=== PATIENT | female | born 1980 | race Two or more races ===

== ENCOUNTER → 2019-02-06 | Outpatient (CLI) | payer OTHER | END | disposition home or self-care (01) | LOC: LAB 14:25 | PROVIDERS: ATTEND Preventive Medicine Preventive Medicine/Occupational Environmental Medicine | DX: Z02.1 Encounter for pre-employment examination (principal) | CPT/HCPCS: 86735; 86762; 86765 ==

== ENCOUNTER → 2019-10-29 | Outpatient (CLI) | payer BC ==
[2019-10-29 08:50] LABS: Basophils # (auto) 0 10 ^3/uL (0-0.2); Basophils % (auto) 0.5 % (0.0-2.0); Eosinophils # (auto) 0 10 ^3/uL (0-0.8); Eosinophils % (auto) 0.4 % (0.0-7.0); Hematocrit 42.8 % (36.0-46.0); Hemoglobin 14.4 g/dL (12.2-16.2); Lymphocytes # (auto) 1.3 10 ^3/uL (0.4-5.4); Lymphocytes % (auto) 23.5 % (10.0-50.0); Mean Corpuscular Hemoglobin 29.3 pg (28.0-32.0); Mean Corpuscular Hgb Conc. 33.6 g/dL (32.0-36.0); Mean Corpuscular Volume 87.2 fL (80.0-100.0); Monocytes # (auto) 0.4 10 ^3/uL (0-1.3); Monocytes % (auto) 7.8 % (0.0-12.0); Neutrophils # (auto) 3.7 10 ^3/uL (1.6-8.6); Neutrophils % (auto) 67.8 % (37.0-80.0); Nucleated Red Blood Cells % 0.3 %; Platelet Count (auto) 231 10^3/uL (140-450); Red Blood Cells 4.91 10^6/uL (4.0-5.20); White Blood Cell 5.5 10^3/uL (4.4-10.8)
[2019-10-29 09:22] LABS: Albumin 3.7 g/dL (3.4-5.0); Calcium 8.5 mg/dL (8.5-10.1)
[2019-10-29 09:28] LABS: BUN/Creatinine Ratio 22.4; Bilirubin, Total 0.5 mg/dL (0.2-1.0); Total Protein 7.5 g/dL (6.4-8.2)
[2019-10-29 09:32] LABS: Free T4 (Free Thyroxine) 1.02 ng/dL (0.89-1.76)
[2019-10-29 09:33] LABS: T3 Total 0.85 ng/mL (0.60-1.81)
== END | disposition home or self-care (01) ==
LOC: LAB 08:21
PROVIDERS: ATTEND Physician Assistant
DX: Z00.00 Encounter for general adult medical examination without abnormal findings (principal); E03.9 Hypothyroidism, unspecified; E04.1 Nontoxic single thyroid nodule; Z28.9 Immunization not carried out for unspecified reason
CPT/HCPCS: 36415; 80053; 80061; 84439; 84443; 84480; 85025

== ENCOUNTER → 2019-12-22 | Outpatient (CLI) | payer OTHER | END | disposition home or self-care (01) | LOC: LAB 15:42 | PROVIDERS: ATTEND Nurse Practitioner Family | DX: Z20.828 Contact with and (suspected) exposure to other viral communicable diseases (principal) | CPT/HCPCS: 87635 ==

== ENCOUNTER → 2020-01-29 | Outpatient (CLI) | payer OTHER | END | disposition home or self-care (01) | LOC: LAB 10:36 | PROVIDERS: ATTEND Nurse Practitioner Family | DX: U07.1 COVID-19 (principal) | CPT/HCPCS: C9803; U0003 ==

== ENCOUNTER 2020-07-16 11:14 | Emergency (ER) | payer BC, OTHER ==
[~2020-07-16] VITALS: Ht 160 cm; Wt 83.0 kg
[2020-07-16 11:44] VITALS: BP 124/80
[2020-07-16] MEDS ORDERED: LORazepam 2MG/ML-1ML VIAL IM ONE (12:30)
== END 2020-07-16 13:41 | disposition home or self-care (01) ==
LOC: ER 11:14
DX: F41.1 Generalized anxiety disorder (principal)
CPT/HCPCS: 96372; 99283; J2060

== ENCOUNTER → 2020-11-03 | Outpatient (CLI) | payer BC ==
[2020-11-03 07:52] LABS: Basophils # (auto) 0 10 ^3/uL (0-0.2); Basophils % (auto) 0.6 % (0.0-2.0); Eosinophils # (auto) 0 10 ^3/uL (0-0.8); Eosinophils % (auto) 0.3 % (0.0-7.0); Hematocrit 38.8 % (36.0-46.0); Hemoglobin 13.2 g/dL (12.2-16.2); Lymphocytes # (auto) 1.6 10 ^3/uL (0.4-5.4); Lymphocytes % (auto) 23.9 % (10.0-50.0); Mean Corpuscular Hemoglobin 29.4 pg (28.0-32.0); Mean Corpuscular Hgb Conc. 33.9 g/dL (32.0-36.0); Mean Corpuscular Volume 86.6 fL (80.0-100.0); Monocytes # (auto) 0.5 10 ^3/uL (0-1.3); Monocytes % (auto) 7.9 % (0.0-12.0); Neutrophils # (auto) 4.4 10 ^3/uL (1.6-8.6); Neutrophils % (auto) 67.3 % (37.0-80.0); Nucleated Red Blood Cells % 0.1 %; Platelet Count (auto) 259 10^3/uL (140-450); Red Blood Cells 4.48 10^6/uL (4.0-5.20); Red Cell Distribution Width 14.1 % (11.8-14.3); White Blood Cell 6.6 10^3/uL (4.4-10.8)
[2020-11-03 08:47] LABS: Albumin 3.8 g/dL (3.4-5.0); BUN/Creatinine Ratio 17.2; Calcium 8.8 mg/dL (8.5-10.1); Potassium 3.5 mmol/L (3.5-5.1)
[2020-11-03 08:55] LABS: Bilirubin, Total 0.6 mg/dL (0.2-1.0); Total Protein 7.4 g/dL (6.4-8.2)
== END | disposition home or self-care (01) ==
LOC: LAB 07:40
PROVIDERS: ATTEND Nurse Practitioner Family
DX: R73.9 Hyperglycemia, unspecified (principal); E78.5 Hyperlipidemia, unspecified; E03.9 Hypothyroidism, unspecified
CPT/HCPCS: 36415; 80053; 80061; 83036; 84443; 85025

== ENCOUNTER → 2020-12-08 | Outpatient (CLI) | payer BC | END | disposition home or self-care (01) | LOC: LAB 10:59 | PROVIDERS: ATTEND Nurse Practitioner Family | DX: E03.9 Hypothyroidism, unspecified (principal) | CPT/HCPCS: 36415; 84443 ==

== ENCOUNTER → 2021-01-10 | Outpatient (CLI) | payer BC | END | disposition home or self-care (01) | LOC: LAB 07:33 | PROVIDERS: ATTEND Physician Assistant | DX: Z20.822 Contact with and (suspected) exposure to COVID-19 (principal) | CPT/HCPCS: C9803; U0003 ==

== ENCOUNTER → 2021-10-12 | Outpatient (CLI) | payer BC, OTHER ==
[2021-10-12 12:18] LABS: Basophils # (auto) 0.1 10 ^3/uL (0-0.2); Basophils % (auto) 0.8 % (0.0-2.0); Eosinophils # (auto) 0 10 ^3/uL (0-0.8); Eosinophils % (auto) 0.7 % (0.0-7.0); Hematocrit 38.9 % (36.0-46.0); Hemoglobin 13.2 g/dL (12.2-16.2); Lymphocytes # (auto) 2.1 10 ^3/uL (0.4-5.4); Lymphocytes % (auto) 32.1 % (10.0-50.0); Mean Corpuscular Volume 85.3 fL (80.0-100.0); Monocytes # (auto) 0.5 10 ^3/uL (0-1.3); Monocytes % (auto) 8.3 % (0.0-12.0); Neutrophils # (auto) 3.7 10 ^3/uL (1.6-8.6); Neutrophils % (auto) 58.1 % (37.0-80.0); Nucleated Red Blood Cells % 0.1 %; Red Blood Cells 4.56 10^6/uL (4.0-5.20); Red Cell Distribution Width 13.8 % (11.8-14.3); White Blood Cell 6.4 10^3/uL (4.4-10.8)
[2021-10-12 12:22] LABS: Urine Bacteria NONE SEEN /hpf (None Seen); Urine Blood Negative /uL (Negative); Urine Specific Gravity 1.007 (1.001-1.035); Urine Sperm PRESENT /hpf (None Seen); Urine WBC 1 /hpf (0 - 5)
[2021-10-12 13:40] LABS: Albumin 3.7 g/dL (3.4-5.0); Calcium 8.6 mg/dL (8.5-10.1); Potassium 3.9 mmol/L (3.5-5.1); Uric Acid 4.2 mg/dL (2.6-6.0)
[2021-10-12 13:43] LABS: BUN/Creatinine Ratio 14.1; Bilirubin, Total 0.4 mg/dL (0.2-1.0); Total Protein 7.6 g/dL (6.4-8.2)
== END | disposition home or self-care (01) ==
LOC: LAB 11:56
PROVIDERS: ATTEND Nurse Practitioner Family
DX: Z00.00 Encounter for general adult medical examination without abnormal findings (principal); R30.0 Dysuria; E03.9 Hypothyroidism, unspecified
CPT/HCPCS: 36415; 80053; 81001; 84439; 84443; 84550; 85025

== ENCOUNTER → 2022-06-20 | Outpatient (CLI) | payer MEDICAID ==
[2022-06-20 07:50] LABS: Basophils # (auto) 0.1 10 ^3/uL (0-0.2); Basophils % (auto) 1.4 % (0.0-2.0); Eosinophils # (auto) 0 10 ^3/uL (0-0.8); Hematocrit 42.2 % (36.0-46.0); Hemoglobin 14.5 g/dL (12.2-16.2); Lymphocytes # (auto) 1.5 10 ^3/uL (0.4-5.4); Lymphocytes % (auto) 33.3 % (10.0-50.0); Mean Corpuscular Hemoglobin 30.9 pg (28.0-32.0); Mean Corpuscular Hgb Conc. 34.4 g/dL (32.0-36.0); Mean Corpuscular Volume 89.9 fL (80.0-100.0); Monocytes # (auto) 0.4 10 ^3/uL (0-1.3); Monocytes % (auto) 7.9 % (0.0-12.0); Neutrophils # (auto) 2.5 10 ^3/uL (1.6-8.6); Neutrophils % (auto) 56.4 % (37.0-80.0); Nucleated Red Blood Cells % 0.1 %; Red Cell Distribution Width 13.9 % (11.8-14.3); White Blood Cell 4.5 10^3/uL (4.4-10.8)
[2022-06-20 08:16] LABS: Albumin 4.1 g/dL (3.4-5.0); Calcium 8.8 mg/dL (8.5-10.1); Potassium 3.8 mmol/L (3.5-5.1)
[2022-06-20 08:22] LABS: BUN/Creatinine Ratio 11.1; Bilirubin, Total 0.6 mg/dL (0.2-1.0); Total Protein 7.6 g/dL (6.4-8.2)
== END | disposition home or self-care (01) ==
LOC: LAB 07:33
PROVIDERS: ATTEND Nurse Practitioner Family
DX: E03.9 Hypothyroidism, unspecified (principal); E78.00 Pure hypercholesterolemia, unspecified
CPT/HCPCS: 36415; 80053; 80061; 84439; 84443; 85025

== ENCOUNTER 2022-12-07 17:08 | Emergency (ER) | payer MEDICAID ==
[~2022-12-07] VITALS: Ht 162.6 cm; Wt 79.3 kg
[2022-12-07 17:35] LABS: Urine Bacteria FEW /hpf (None Seen); Urine Blood Negative /uL (Negative); Urine Mucus FEW (None Seen); Urine Specific Gravity 1.015 (1.001-1.035); Urine WBC 4 /hpf (0 - 5)
[2022-12-07] MEDS ORDERED: PROCHLORPERAZINE EDISYLATE 5 MG/ML 2ML VIAL IM ONE (17:45)
[2022-12-07] MEDS ORDERED: MORPHINE SULFATE INJ 2 MG/ml SYRG IM ONE (17:45)
[2022-12-07 17:46] LABS: Basophils # (auto) 0.1 10 ^3/uL (0-0.2); Basophils % (auto) 0.8 % (0.0-2.0); Eosinophils # (auto) 0 10 ^3/uL (0-0.8); Eosinophils % (auto) 0.5 % (0.0-7.0); Hematocrit 42.3 % (36.0-46.0); Hemoglobin 14.3 g/dL (12.2-16.2); Lymphocytes # (auto) 2.7 10 ^3/uL (0.4-5.4); Lymphocytes % (auto) 36.5 % (10.0-50.0); Mean Corpuscular Hgb Conc. 33.9 g/dL (32.0-36.0); Mean Corpuscular Volume 91.4 fL (80.0-100.0); Monocytes # (auto) 0.5 10 ^3/uL (0-1.3); Monocytes % (auto) 7.1 % (0.0-12.0); Neutrophils # (auto) 4.1 10 ^3/uL (1.6-8.6); Neutrophils % (auto) 55.1 % (37.0-80.0); Nucleated Red Blood Cells % 0.1 %; Red Blood Cells 4.63 10^6/uL (4.0-5.20); White Blood Cell 7.5 10^3/uL (4.4-10.8)
[2022-12-07 18:05] LABS: Albumin 3.9 g/dL (3.4-5.0); BUN/Creatinine Ratio 10.3 (10.0-20.0); Calcium 8.8 mg/dL (8.5-10.1); Potassium 3.4 mmol/L (3.5-5.1)
[2022-12-07 18:08] LABS: Bilirubin, Total 0.5 mg/dL (0.2-1.0)
[2022-12-07 18:58] LABS: INR 0.98 (0.9-1.15); Partial Thromboplastin Time 27.6 SEC (24.5-34.5)
[2022-12-07] MEDS ORDERED: cefTRIAXone SOD 1,000 MG VL IM ONE (19:45)
[2022-12-07 20:54] VITALS: BP 112/69
[2022-12-07] MEDS ORDERED: CEPH500T PO (21:24)
== END 2022-12-07 21:03 | disposition home or self-care (01) ==
LOC: ER 17:08
DX: N39.0 Urinary tract infection, site not specified (principal)
CPT/HCPCS: 36415; 74176; 76705; 80053; 81001; 83690; 84484; 85025; 85610; 85730; 87086; 93005; 96372; 99285; J0696; J0780; J2270

== ENCOUNTER → 2023-02-28 | Outpatient (CLI) | payer MEDICAID ==
[~2023-02-28] MED LIST: CEPH500T PO
== END | disposition home or self-care (01) ==
LOC: LAB 07:29
PROVIDERS: ATTEND Nurse Practitioner Family
DX: E03.9 Hypothyroidism, unspecified (principal)
CPT/HCPCS: 36415; 84439; 84443

== ENCOUNTER → 2024-03-12 | Outpatient (CLI) | payer MEDICAID ==
[2024-03-12 08:48] LABS: Basophils # (auto) 0 10 ^3/uL (0-0.2); Basophils % (auto) 0.8 % (0.0-2.0); Eosinophils # (auto) 0 10 ^3/uL (0-0.8); Eosinophils % (auto) 0.7 % (0.0-7.0); Hematocrit 41.2 % (36.0-46.0); Hemoglobin 14.2 g/dL (12.2-16.2); Lymphocytes # (auto) 1.3 10 ^3/uL (0.4-5.4); Lymphocytes % (auto) 28.5 % (10.0-50.0); Mean Corpuscular Hemoglobin 32.4 pg (28.0-32.0); Mean Corpuscular Hgb Conc. 34.3 g/dL (32.0-36.0); Mean Corpuscular Volume 94.3 fL (80.0-100.0); Monocytes # (auto) 0.4 10 ^3/uL (0-1.3); Monocytes % (auto) 9.5 % (0.0-12.0); Neutrophils # (auto) 2.9 10 ^3/uL (1.6-8.6); Neutrophils % (auto) 60.5 % (37.0-80.0); Platelet Count (auto) 207 10^3/uL (140-450); Red Blood Cells 4.37 10^6/uL (4.0-5.20); Red Cell Distribution Width 13.4 % (11.8-14.3); White Blood Cell 4.7 10^3/uL (4.4-10.8)
[2024-03-12 09:56] LABS: Alanine Aminotransferase 26 U/L (7-40); Albumin 4.5 g/dL (3.2-4.8); Alkaline Phosphatase 59 U/L (46-116); Aspartate Aminotransferase 21 U/L (13-40); Bilirubin, Total 0.8 mg/dL (0.2-1.0); Blood Urea Nitrogen 9 mg/dL (9-23); Calcium 9.5 mg/dL (8.7-10.4); Chloride 113 mmol/L (98-107); Cholesterol 153 mg/dL (< 200); Glucose 81 mg/dL (74-106); HDL Cholesterol 54 mg/dL (40-59); LDL Cholesterol 96 mg/dL (< 100); Potassium 4.2 mmol/L (3.5-5.1); Sodium 142 mmol/L (136-145); Triglycerides 97 mg/dL (< 150)
[2024-03-12 10:16] LABS: Anion Gap 8 (5-15); Carbon Dioxide 21 mmol/L (20-31)
== END | disposition home or self-care (01) ==
LOC: LAB 08:16
PROVIDERS: ATTEND Nurse Practitioner Family
DX: E78.5 Hyperlipidemia, unspecified (principal); E03.9 Hypothyroidism, unspecified
CPT/HCPCS: 36415; 80053; 80061; 84439; 84443; 85025

== ENCOUNTER → 2024-08-31 | Outpatient (CLI) | payer MEDICAID | END | disposition home or self-care (01) | LOC: LAB 11:19 | PROVIDERS: ATTEND Nurse Practitioner Family | DX: E03.9 Hypothyroidism, unspecified (principal) | CPT/HCPCS: 36415; 84443 ==

== ENCOUNTER 2025-02-26 07:26 | Outpatient (CLI) | payer MEDICAID ==
[2025-02-26 07:51] LABS: Hematocrit 40.1 % (36.0-46.0); Hemoglobin 14.0 g/dL (12.2-16.2); Mean Corpuscular Hemoglobin 32.1 pg (28.0-32.0); Mean Corpuscular Volume 92.2 fL (80.0-100.0); Nucleated Red Blood Cells % 0.0 %
[2025-02-26 08:09] LABS: Alanine Aminotransferase 15 U/L (7-40); Albumin 4.4 g/dL (3.2-4.8); Alkaline Phosphatase 52 U/L (46-116); Anion Gap 10 (5-15); BUN/Creatinine Ratio 7.8 (10.0-20.0); Calcium 9.3 mg/dL (8.7-10.4); Carbon Dioxide 23 mmol/L (20-31); Glucose 83 mg/dL (74-106); Potassium 4.0 mmol/L (3.5-5.1); Sodium 142 mmol/L (136-145); Total Protein 7.1 g/dL (5.7-8.2); Triglycerides 66 mg/dL (< 150)
[2025-02-26 08:10] LABS: Bilirubin, Total 1.1 mg/dL (0.2-1.0); Cholesterol 144 mg/dL (< 200); HDL Cholesterol 44 mg/dL (40-59)
[2025-02-26 08:21] LABS: Blood Urea Nitrogen 6 mg/dL (9-23); Chloride 109 mmol/L (98-107)
== END 2025-02-26 17:00 | disposition home or self-care (01) ==
LOC: LAB 07:26
PROVIDERS: ATTEND Nurse Practitioner Family
DX: E78.5 Hyperlipidemia, unspecified (principal); E03.9 Hypothyroidism, unspecified; Z00.01 Encounter for general adult medical examination with abnormal findings
CPT/HCPCS: 36415; 80053; 80061; 84443; 85025

== ENCOUNTER 2025-04-12 06:19 | Inpatient (IN) | payer MEDICAID ==
[2025-04-08 10:26] LABS: Hematocrit 41.9 % (36.0-46.0); Hemoglobin 14.4 g/dL (12.2-16.2); Mean Corpuscular Hemoglobin 31.6 pg (28.0-32.0); Mean Corpuscular Volume 92.2 fL (80.0-100.0); Nucleated Red Blood Cells % 0.1 %
[2025-04-08 10:54] LABS: INR 1.0 (0.9-1.15); Partial Thromboplastin Time 26.3 SEC (24.5-34.5); Prothrombin Time 10.6 sec (9.3-11.8)
[2025-04-08 11:08] LABS: Alanine Aminotransferase 16 U/L (7-40); Alkaline Phosphatase 59 U/L (46-116); Anion Gap 11 (5-15); BUN/Creatinine Ratio 10.7 (10.0-20.0); Calcium 9.4 mg/dL (8.7-10.4); Carbon Dioxide 24 mmol/L (20-31); Glucose 77 mg/dL (74-106); Potassium 3.8 mmol/L (3.5-5.1); Sodium 142 mmol/L (136-145)
[2025-04-08 11:09] LABS: Albumin 4.6 g/dL (3.2-4.8); Total Protein 7.5 g/dL (5.7-8.2)
[2025-04-08 11:10] LABS: Bilirubin, Total 1.0 mg/dL (0.2-1.0)
[2025-04-08 11:30] LABS: Blood Urea Nitrogen 8 mg/dL (9-23); Chloride 107 mmol/L (98-107)
[2025-04-08 11:33] LABS: Urine Protein, UAD Negative (Negative)
[2025-04-12] VITALS (8 sets, daily range): BP systolic 94–123; BP diastolic 62–89; PULSE 60–96; RESP 16–20; TEMP 97.1–98.2; O2SAT 95–99
[~2025-04-12] VITALS: Ht 160 cm; Wt 83.5 kg
[~2025-04-12 06:19] MED LIST changes: -CEPH500T PO; +LEVO25TA6 PO; +RIME75TA PO; +SEMA2.4I SC
[2025-04-12] MEDS: ceFAZolin 2 GM/D5W50ml 50 ML IV ONE (06:27)
[2025-04-12] MEDS: ROCURONIUM 10MG/ML 10ML VIAL IV ONE (06:41)
[2025-04-12] MEDS: SUCCINYLCHOLINE CHLORIDE 20 MG/ML 10ML VIAL IV ONE (06:41)
[2025-04-12] MEDS ORDERED: KETAMINE 50mg/ML 1ml syringe ONE (06:48)
[2025-04-12] MEDS ORDERED: fentaNYL CITRATE 100 MCG/2 ML VL ONE (06:48)
[2025-04-12] MEDS ORDERED: PROPOFOL 10 MG/ML 20 ML IV ONE (06:48)
[2025-04-12] MEDS ORDERED: SODIUM CHLORIDE LOCK 10 ML ONE (06:48)
[2025-04-12] MEDS ORDERED: LIDOCAINE 1% INJ PF 5ML AMP ONE (06:48)
[2025-04-12] MEDS ORDERED: LIDOCAINE HCL 2% TOP JELLY 5ML TOP ONE (06:48)
[2025-04-12] MEDS ORDERED: MEPERIDINE HCL (25 MG/ML) 1ML VIAL ONE (06:48)
[2025-04-12] MEDS ORDERED: ONDANSETRON HCL 4 MG/2 ML VIAL ONE (06:48)
[2025-04-12] MEDS ORDERED: MIDAZOLAM HCL 2MG/2ML 2ml VIAL (1mg/ml) ONE (06:48)
[2025-04-12] MEDS: BUPIVACAINE 0.5% P/F INJ 10 ML VIAL ONE (07:19)
[2025-04-12] MEDS: LIDOCAINE W/ EPINEPHRINE 1% 20ML VIAL ONE (07:19)
[2025-04-12] MEDS ORDERED: SUGAMMADEX 200mg/2ml Vial (100MG/ML) IV ONE (07:52)
[2025-04-12] MEDS ORDERED: HYDROmorphone HCL 2 MG/ML VL/or syr IV PRN (08:30)
[2025-04-12] MEDS ORDERED: METOCLOPRAMIDE HCL 5MG/ml INJ 2ml VIAL IV PRN (08:30)
[2025-04-12] MEDS: KETOROLAC TROMETH 30 MG/ML 1ML VIAL IV ONE (08:30)
[2025-04-12] MEDS ORDERED: MORPHINE SULFATE 4 MG/ML SYR/VIAL IV PRN (08:30)
--- NOTE | 2025-04-12 08:46 | DVHOP ---
DATE OF SURGERY: 04/12/2025 PREOPERATIVE DIAGNOSES: * Cholelithiasis. * Cholecystitis. POSTOPERATIVE DIAGNOSES: * Cholelithiasis. * Cholecystitis. SURGEON: Volodymyr Aguiar MD SUPERVISOR COVERING AND LINING: Jesus Alberto Mac NP ANESTHESIA: General endotracheal. ANESTHESIOLOGIST: Dr. Pan PROCEDURES: * Laparoscopy. * Laparoscopic cholecystectomy. DESCRIPTION OF PROCEDURE: Under general endotracheal anesthesia with the patient's skin prepped and draped, a supraumbilical incision was made and Veress needle inserted by the hanging drop technique in order to establish pneumoperitoneum to 15 mmHg of pressure by insufflation with carbon dioxide. With the abdomen fully distended, the needle was removed and replaced with a 5 mm trocar port through which a 0-degree viewing laparoscope was inserted and under direct vision, additional 5 and 10 mm ports were inserted, 5 mm at the anterior axillary line at the level of the umbilicus and 10 mm port in the subxiphoid midline skin. Instrumentation was introduced and laparoscopy was conducted revealing no obvious unexpected pathology on the serosal surfaces visualized. The gallbladder was then placed on tension. The cystic duct and cystic artery were identified, circumferentially dissected and traced into the hepatocystic triangle so as to minimize the potential for inadvertent injury to the common bile duct. The cystic duct and cystic artery were divided between metallic clips safely away from the common bile duct again attempting to avoid injury to the common bile duct. Following division of the cystic duct and cystic artery between metallic clips, the gallbladder was resected from its liver bed by electrocautery and traction and a fully mobilized decompressed gallbladder (the bile had been aspirated during the cholecystectomy). The gallbladder was removed from the peritoneal cavity by placement in a specimen extraction bag, which was withdrawn through the subxiphoid 10 mm port site. The right upper quadrant was then profusely irrigated. Irrigant was aspirated. Hemostasis was meticulously inspected and found to be complete. At the termination of the procedure, there was no evidence of bleeding from either the port sites or from the cholecystectomy site. Instrumentation was withdrawn. Pneumoperitoneum was evacuated. Fascial defect was closed using 0 Vicryl. Wounds approximated using Monocryl sutures, Dermabond, glue, and Steri-Strips. The patient remained stable throughout the procedure, left the operating room following an accurate needle and sponge counts. Her was thoroughly informed by phone. Volodymyr Aguiar MD PF/VIS TID: [id number] RECEIPT: [id number]
[2025-04-12] MEDS ORDERED: MORPHINE SULFATE INJ 2 MG/ml SYRG IV PRN ×2 (09:12→10:30)
[2025-04-12] MEDS: HYDROmorphone HCL 2 MG/ML VL/or syr IV PRN ×2 (09:39→17:07)
[2025-04-12] MEDS: D5W/SOD CHL 0.45%/KCL 20MEQ 1,000 ML IV SCH (10:13)
[2025-04-12] MEDS: PANTOPRAZOLE 40 MG/10 ML VIAL INJ IV SCH (10:16)
[2025-04-12] MEDS ORDERED: NITROGLYCERIN 0.4 MG SL TAB SL PRN (10:30)
--- NOTE | 2025-04-12 10:37 | DVHHP2 ---
Review of Systems Allergies: Coded Allergies: NO KNOWN ALLERGIES (Unverified , 07/16/20) Medications Current Medications Medications Dose Ordered Sig/Felicitas Route Start Time Stop Time Status Last Admin Dose Admin Morphine Sulfate 2 mg Q4H PRN IV 04/12/25 08:30 04/12/25 12:31 Morphine Sulfate 1 mg Q30M PRN IV 04/12/25 09:12 04/12/25 11:13 Potassium Chloride/Dextrose/ Sod Cl 1,000 ml @ 120 mls/hr Q8H20M IV 04/12/25 08:15 04/12/25 10:13 120 MLS/HR Metronidazole 100 ml @ 100 mls/hr Q8HR IV 04/12/25 14:00 Hydromorphone HCl 1 mg Q3HPRN PRN IV 04/12/25 08:15 Ondansetron HCl 4 mg Q4HPRN PRN IV 04/12/25 08:15 Pantoprazole Sodium 40 mg DAILY IV 04/12/25 10:00 04/12/25 10:16 40 MG Cefazolin Sodium/ Dextrose 50 ml @ 50 mls/hr Q8H IV 04/12/25 15:30 Nitroglycerin 0.4 mg Q5MINP PRN SL 04/12/25 10:30 UNV Morphine Sulfate 2 mg Q30M PRN IV 04/12/25 10:30 UNV Exam Vital Signs Vital Signs Date Time Temp Pulse Resp B/P (MAP) Pulse Ox O2 Delivery O2 Flow Rate FiO2 04/12/25 09:52 64 19 112/66 04/12/25 08:13 Mask 7.0 98 04/12/25 08:13 98 04/12/25 06:36 97.0 97.0 Labs/Xrays Labs Test 04/08/25 10:03 Range/Units White Blood Count 4.9 4.4-10.8 10^3/uL Red Blood Count 4.54 4.0-5.20 10^6/uL Hemoglobin 14.4 12.2-16.2 g/dL Hematocrit 41.9 36.0-46.0 % Mean Corpuscular Volume 92.2 80.0-100.0 fL Mean Corpuscular Hemoglobin 31.6 28.0-32.0 pg Mean Corpuscular Hemoglobin Concent 34.3 32.0-36.0 g/dL Red Cell Distribution Width 13.0 11.8-14.3 % Platelet Count 220 140-450 10^3/uL Mean Platelet Volume 9.2 6.9-10.8 fL Neutrophils (%) (Auto) 54.0 37.0-80.0 % Lymphocytes (%) (Auto) 34.3 10.0-50.0 % Monocytes (%) (Auto) 10.1 0.0-12.0 % Eosinophils (%) (Auto) 0.9 0.0-7.0 % Basophils (%) (Auto) 0.7 0.0-2.0 % Neutrophils # (Auto) 2.7 1.6-8.6 10 ^3/uL Lymphocytes # (Auto) 1.7 0.4-5.4 10 ^3/uL Monocytes # (Auto) 0.5 0-1.3 10 ^3/uL Eosinophils # (Auto) 0 0-0.8 10 ^3/uL Basophils # (Auto) 0 0-0.2 10 ^3/uL Nucleated Red Blood Cells 0.1 % Prothrombin Time 10.6 9.3-11.8 sec Prothrombin Time INR 1.00 0.9-1.15 Activated Partial Thromboplast Time 26.3 24.5-34.5 SEC Urine Color Light-yellow Yellow Urine Clarity Clear Clear Urine pH 5.5 5.0-9.0 Urine Specific [place] 1.010 1.001-1.035 Urine Protein Negative Negative Urine Ketones Negative Negative Urine Blood Negative Negative /uL Urine Nitrite Negative Negative Urine Bilirubin Negative Negative Urine Urobilinogen Normal Negative mg/dL Urine Leukocyte Esterase Negative Negative /uL Urine RBC 1 0 - 4 /hpf Urine Microscopic WBC < 1 0-5 /HPF Urine Squamous Epithelial Cells Few <5 /hpf Urine Bacteria Many H None Seen /hpf Urine Glucose Normal Normal mg/dL Urine Test Negative Negative Sodium Level 142 136-145 mmol/L Potassium Level 3.8 3.5-5.1 mmol/L Chloride Level 107 98-107 mmol/L Carbon Dioxide Level 24 20-31 mmol/L Anion Gap 11 5-15 Blood Urea Nitrogen 8 L 9-23 mg/dL Creatinine 0.75 0.550-1.02 mg/dL Glomerular Filtration Rate Calc 99 >90 mL/min BUN/Creatinine Ratio 10.7 10.0-20.0 Serum Glucose 77 74-106 mg/dL Calcium Level 9.4 8.7-10.4 mg/dL Total Bilirubin 1.0 0.2-1.0 mg/dL Aspartate Amino Transferase (AST) 19 13-40 U/L Alanine Aminotransferase (ALT) 16 7-40 U/L Alkaline Phosphatase 59 46-116 U/L Total Protein 7.5 5.7-8.2 g/dL Albumin 4.6 3.2-4.8 g/dL SEPSIS Sepsis Screen Physician Orders Oxygen By Face Mask (04/12/25 08:17) Patient Account Liaison (04/12/25 08:17) Notify Anesth. For Changes: (04/12/25 08:17) Pulse Ox Assessment (04/12/25 08:17) Bear Hugger For Temp <94.5f (04/12/25 08:17) May Have Head Of Bed Up (04/12/25 08:17) Follow Iv With Surgeon Orders (04/12/25 08:17) Discharge To Room Per Criteria (04/12/25 08:17) Morphine Sulfate Injection (04/12/25 08:30) Morphine Sulfate Injection (04/12/25 09:12) To Pacu For Recovery (04/12/25 08:14) Oxygen Via Cool Mist Mask (04/12/25 08:14) Abdominal Binder (04/12/25 08:14) Sequential Compression Device (04/12/25 08:14) Clear Liq Diet (04/12/25 Breakfast) Bilirubin, Total (04/13/25 04:00) Call/Page Hospitalist/Atten Fo (04/12/25 08:14) Notify Hospitalist In Am For: (04/12/25 08:14) D5w/Sod Chl 0.45%/Kcl 20meq (04/12/25 08:15) Metronidazole 500mg/100ml (Flagyl 500mg/ (04/12/25 14:00) Hydromorphone Injection (Dilaudid Inject (04/12/25 08:15) Ondansetron Hcl (Zofran) (04/12/25 08:15) Pantoprazole (Protonix) (04/12/25 10:00) Cefazolin 2 Gm/L5y32hy (Ancef) (04/12/25 15:30) Admit (04/12/25 10:21) Oxygen By Nasal Cannula (04/12/25 10:21) Nitroglycerin Sublingual (Ntrostat Subli (04/12/25 10:30) Morphine Sulfate Injection (04/12/25 10:30) Stat Ekg For Chest Pain (04/12/25 10:21) Notify Md Of Changes From Base (04/12/25 10:21) Vital Signs Date Time Temp Pulse Resp B/P (MAP) Pulse Ox O2 Delivery O2 Flow Rate FiO2 04/12/25 09:52 64 19 112/66 04/12/25 09:39 64 19 105/70 04/12/25 08:13 Mask 7.0 98 04/12/25 08:13 73 17 98 Mask 7.0 04/12/25 06:36 97.0 70 18 106/75 (85) 97 97.0 Medications Medications Dose Ordered Sig/Felicitas Route Start Time Stop Time Status Last Admin Dose Admin Hydromorphone HCl 0.5 mg Q10M PRN IV 04/12/25 08:30 04/12/25 09:11 DC 04/12/25 09:52 0.5 MG Pantoprazole Sodium 40 mg DAILY IV 04/12/25 10:00 04/12/25 10:16 40 MG Potassium Chloride/Dextrose/ Sod Cl 1,000 ml @ 120 mls/hr Q8H20M IV 04/12/25 08:15 04/12/25 10:13 120 MLS/HR Assessment/Plan Assessment/Plan see dictated note Plan discussed with: Patient My Orders Orders - TIM LYNNE MD Procedure Category Date Status Time Admit ADMIT 04/12/25 Transmitted 10:21 Oxygen By Nasal RT 04/12/25 Transmitted Cannula 10:21 Nitroglycerin PHA 04/12/25 Logged Sublingual (Ntrostat 10:30 Morphine Sulfate PHA 04/12/25 Logged Injection 10:30 Stat Ekg For Chest COLTON 04/12/25 In Process Pain 10:21 Notify Md Of Changes COLTON 04/12/25 In Process From Base 10:21 Date of Service: Apr 12, 2025 Billing Provider: TIM LYNNE MD Common Visit Codes: [id number] INP/OBS CARE (HIGH) TIM LYNNE MD Apr 12, 2025 10:37
--- NOTE | 2025-04-12 10:47 | DVHHP ---
ADMIT DATE: 04/12/2025 HISTORY OF PRESENT ILLNESS: The patient is a 44-year-old lady who was admitted after she underwent laparoscopic cholecystectomy for cholelithiasis and chronic cholecystitis. The patient currently denies any significant pain. No chest pain. No shortness of breath. No nausea or vomiting. REVIEW OF SYSTEMS: Review of rest of systems is currently negative. PAST MEDICAL HISTORY: Significant for hypothyroidism and migraines. MEDICATIONS: She takes Wegovy, Nurtec and levothyroxine. ALLERGIES: No known drug allergies. SOCIAL HISTORY: No smoking or alcohol. Lives at home with family. FAMILY HISTORY: Negative. PHYSICAL EXAMINATION: GENERAL: The patient is awake, alert. VITAL SIGNS: Temperature of 97, pulse 70 per minute, blood pressure 106/75. SHEENT: Unremarkable. NECK: There is no JVD. No pedal edema. LUNGS: Equal bilaterally. No added sounds. CARDIOVASCULAR: S1 and S2 is regular. No murmurs. ABDOMEN: Soft. Bowel sounds are hypoactive. NEUROLOGIC: Nonfocal. MUSCULOSKELETAL: Normal. ASSESSMENT AND PLAN: * Hypothyroidism, for which she will continue on levothyroxine and TSH will be checked. * Migraines. * Status post laparoscopic cholecystectomy for cholelithiasis and chronic cholecystitis. The patient will be placed on intravenous fluids, pain medications and a clear liquid diet. MD ADITHYA Mckeon/ERVIN TID: [id number] RECEIPT: [id number]
[2025-04-12] MEDS: ONDANSETRON HCL 4 MG/2 ML VIAL IV PRN (10:54)
[2025-04-12] MEDS: HYDROcodone-ACET 5/325MG TAB PO PRN (13:26)
[2025-04-12] MEDS ORDERED: ceFAZolin 2 GM/D5W50ml 50 ML IV SCH (14:00)
[2025-04-12] MEDS: ceFAZolin 2 GM/D5W50ml 50 ML IV SCH (14:34)
[2025-04-12] MEDS: SIMETHICONE 80 MG CHEWABLE TABLET PO ONE (20:30)
[2025-04-13] VITALS (7 sets, daily range): BP systolic 92–106; BP diastolic 62–75; PULSE 83–106; RESP 18–20; TEMP 97.5–98.7; O2SAT 94–100
[2025-04-13 06:07] LABS: Hematocrit 30.0 % (36.0-46.0); Hemoglobin 10.3 g/dL (12.2-16.2); Mean Corpuscular Hemoglobin 31.6 pg (28.0-32.0); Mean Corpuscular Volume 91.9 fL (80.0-100.0); Nucleated Red Blood Cells % 0.0 %
[2025-04-13 06:33] LABS: Alanine Aminotransferase 19 U/L (7-40); Albumin 3.6 g/dL (3.2-4.8); Anion Gap 10 (5-15); BUN/Creatinine Ratio 8.7 (10.0-20.0); Bilirubin, Total 1.0 mg/dL (0.2-1.0); Carbon Dioxide 22 mmol/L (20-31); Glucose 100 mg/dL (74-106); Potassium 3.7 mmol/L (3.5-5.1); Sodium 139 mmol/L (136-145); Total Protein 5.9 g/dL (5.7-8.2)
[2025-04-13 06:36] LABS: Alkaline Phosphatase 43 U/L (46-116); Blood Urea Nitrogen 6 mg/dL (9-23); Calcium 8.2 mg/dL (8.7-10.4); Chloride 107 mmol/L (98-107)
--- NOTE | 2025-04-13 10:36 | DVHPN2 ---
Progress Note Date Seen: Apr 13, 2025 Medical Necessity Reason Pt with a Central, PICC or Fol: No Subjective Patient reports: No new complaints Review of Systems: HEENT:Normal, CVS:Normal, RESPIRATORY:Normal, GI:Normal, :Normal, MSK:Normal, NEURO:Normal Objective vital signs Vital Sign Date Time Temp Pulse Resp B/P (MAP) Pulse Ox O2 Delivery O2 Flow Rate FiO2 04/13/25 09:10 98.7 93 18 102/64 (77) 100 98.7 04/12/25 20:00 Room Air* 0 21 Total Intake and Output 04/12/25 04/12/25 04/13/25 15:00 23:00 07:00 Intake Total 100 ml 1685 ml 750 ml Balance 100 ml 1685 ml 750 ml medications Current Medications Medications Dose Ordered Sig/Felicitas Route Start Time Stop Time Status Last Admin Dose Admin Potassium Chloride/Dextrose/ Sod Cl 1,000 ml @ 120 mls/hr Q8H20M IV 04/12/25 08:15 04/12/25 10:13 120 MLS/HR Metronidazole 100 ml @ 100 mls/hr Q8HR IV 04/12/25 14:00 04/13/25 05:41 100 MLS/HR Hydromorphone HCl 1 mg Q3HPRN PRN IV 04/12/25 08:15 04/12/25 17:07 1 MG Ondansetron HCl 4 mg Q4HPRN PRN IV 04/12/25 08:15 04/12/25 10:54 4 MG Pantoprazole Sodium 40 mg DAILY IV 04/12/25 10:00 04/13/25 09:59 40 MG Cefazolin Sodium/ Dextrose 50 ml @ 50 mls/hr Q8H IV 04/12/25 15:30 04/13/25 09:59 50 MLS/HR Nitroglycerin 0.4 mg Q5MINP PRN SL 04/12/25 10:30 Morphine Sulfate 2 mg Q30M PRN IV 04/12/25 10:30 Acetaminophen/ Hydrocodone Bitart 1 tab Q6HPRN PRN PO 04/12/25 10:45 04/13/25 10:00 1 TAB Acetaminophen 650 mg Q6HP PRN PO 04/12/25 10:45 Examination: GENERAL:Normal, HEENT:Normal, NECK:Normal, LUNGS:Normal, CVS:Normal, ABDOMEN:Normal, MSK:Normal, SKIN:Normal, NEURO:Normal, :Normal laboratory and microbiology Laboratory Tests 04/13/25 05:25 Test 04/13/25 05:25 Range/Units Serum Glucose 100 74-106 mg/dL Problem List/Assessment/Plan Problem List/Assessment/Plan * Hypothyroidism, for which she will continue on levothyroxine and TSH will be checked. * shortness of breath: chest xray * Migraines. * Status post laparoscopic cholecystectomy for cholelithiasis and chronic cholecystitis. The patient will be placed on intravenous fluids, pain medications and a full liquid diet. Plan discussed with: Patient My Orders My Orders Orders - TIM LYNNE MD Procedure Category Date Status Time Hydrocodone-Acet PHA 04/12/25 In Process 5/325mg Tab ([place] 10:45 Acetaminophen Tablet PHA 04/12/25 In Process (Tylenol Tablet) 10:45 Hydrocodone-Acet PHA 04/13/25 Transmitted 5/325mg Tab ([place] 10:45 Hydromorphone PHA 04/13/25 Transmitted Injection (Dilaudid 10:45 Full Liq Diet DIET 04/13/25 Transmitted Lunch Complete Blood Count LAB 04/14/25 Verified 06:00 Comprehensive LAB 04/14/25 Verified Metabolic Panel 06:00 Chest Portable XY 04/13/25 Transmitted 10:33 Date of Service: Apr 13, 2025 Billing Provider: TIM LYNNE MD Common Visit Codes: [id number] INP/OBS CARE(HIGH) TIM LYNNE MD Apr 13, 2025 10:36
[2025-04-13] MEDS ORDERED: HYDROmorphone HCL 2 MG/ML VL/or syr IV PRN (10:45)
--- NOTE | 2025-04-13 12:17 | DVHPN2 ---
Progress Note Date Seen: Apr 13, 2025 Medical Necessity Reason Pt with a Central, PICC or Fol: No Objective vital signs Vital Sign Date Time Temp Pulse Resp B/P (MAP) Pulse Ox O2 Delivery O2 Flow Rate FiO2 04/13/25 09:10 98.7 93 18 102/64 (77) 100 98.7 04/12/25 20:00 Room Air* 0 21 Total Intake and Output 04/12/25 04/12/25 04/13/25 15:00 23:00 07:00 Intake Total 100 ml 1685 ml 750 ml Balance 100 ml 1685 ml 750 ml medications Current Medications Medications Dose Ordered Sig/Felicitas Route Start Time Stop Time Status Last Admin Dose Admin Potassium Chloride/Dextrose/ Sod Cl 1,000 ml @ 120 mls/hr Q8H20M IV 04/12/25 08:15 04/12/25 10:13 120 MLS/HR Metronidazole 100 ml @ 100 mls/hr Q8HR IV 04/12/25 14:00 04/13/25 05:41 100 MLS/HR Ondansetron HCl 4 mg Q4HPRN PRN IV 04/12/25 08:15 04/12/25 10:54 4 MG Pantoprazole Sodium 40 mg DAILY IV 04/12/25 10:00 04/13/25 09:59 40 MG Cefazolin Sodium/ Dextrose 50 ml @ 50 mls/hr Q8H IV 04/12/25 15:30 04/13/25 09:59 50 MLS/HR Nitroglycerin 0.4 mg Q5MINP PRN SL 04/12/25 10:30 Morphine Sulfate 2 mg Q30M PRN IV 04/12/25 10:30 Acetaminophen 650 mg Q6HP PRN PO 04/12/25 10:45 Acetaminophen/ Hydrocodone Bitart 1 tab Q4HP PRN PO 04/13/25 14:00 Hydromorphone HCl 1 mg Q4HP PRN IV 04/13/25 10:45 laboratory and microbiology Laboratory Tests 04/13/25 05:25 Test 04/13/25 05:25 Range/Units Serum Glucose 100 74-106 mg/dL Problem List/Assessment/Plan Problem List/Assessment/Plan 04/13/25 DOING WELL, WOUNDS CLEAN AND WELL APPROXIMATED, ABDOMEN APPROPRIATELY TENDER, ADVANCE DIET, HOME TOMORROW Plan discussed with: Patient, Other VINITA IQBAL MD Apr 13, 2025 12:17
--- NOTE | 2025-04-13 12:34 | DVH ---
CHEST RADIOGRAPH Indication: sob Technique: Single frontal view of the chest was obtained Comparison: None FINDINGS: Lines and Tubes: None Lungs: No focal consolidation. Poor inspiratory effort. Pleura: No effusion. No pneumothorax. Cardiomediastinal contours: Unremarkable Bones: No acute osseous abnormality. IMPRESSION: 1. No acute cardiopulmonary disease. 2. Poor inspiratory effort.
[2025-04-13] MEDS: HYDROcodone-ACET 5/325MG TAB PO PRN (14:20)
[2025-04-14 05:00] VITALS: BP 103/70; PULSE 88; RESP 18; TEMP 97.8; O2SAT 93
[2025-04-14] MEDS: ACETAMINOPHEN 325 MG TAB PO PRN (05:56)
[2025-04-14 06:40] LABS: Hematocrit 27.2 % (36.0-46.0); Hemoglobin 9.5 g/dL (12.2-16.2); Mean Corpuscular Hemoglobin 32.2 pg (28.0-32.0); Mean Corpuscular Volume 91.6 fL (80.0-100.0); Nucleated Red Blood Cells % 0.0 %
[2025-04-14 06:46] LABS: Alanine Aminotransferase 15 U/L (7-40); Alkaline Phosphatase 50 U/L (46-116); Anion Gap 8 (5-15); BUN/Creatinine Ratio 8.2 (10.0-20.0); Carbon Dioxide 24 mmol/L (20-31); Glucose 87 mg/dL (74-106); Potassium 3.8 mmol/L (3.5-5.1); Sodium 141 mmol/L (136-145); Total Protein 6.0 g/dL (5.7-8.2)
[2025-04-14 06:47] LABS: Albumin 3.5 g/dL (3.2-4.8); Bilirubin, Total 0.6 mg/dL (0.2-1.0)
[2025-04-14 06:52] LABS: Blood Urea Nitrogen 6 mg/dL (9-23); Calcium 8.3 mg/dL (8.7-10.4); Chloride 109 mmol/L (98-107)
[2025-04-14 08:00] VITALS: RESP 18; O2SAT 97
--- NOTE | 2025-04-14 10:45 | DVHDS2 ---
Discharge Summary Date of Admission Apr 12, 2025 at 10:21 Date of Discharge: Apr 14, 2025 Labs/Diagnostic Data: Laboratory Results Test 04/14/25 05:23 04/13/25 05:25 04/08/25 10:03 White Blood Count 5.4 10^3/uL (4.4-10.8) Red Blood Count 2.97 10^6/uL (4.0-5.20) Hemoglobin 9.5 g/dL (12.2-16.2) Hematocrit 27.2 % (36.0-46.0) Mean Corpuscular Volume 91.6 fL (80.0-100.0) Mean Corpuscular Hemoglobin 32.2 pg (28.0-32.0) Mean Corpuscular Hemoglobin Concent 35.1 g/dL (32.0-36.0) Red Cell Distribution Width 13.0 % (11.8-14.3) Platelet Count 162 10^3/uL (140-450) Mean Platelet Volume 9.5 fL (6.9-10.8) Neutrophils (%) (Auto) 75.2 % (37.0-80.0) Lymphocytes (%) (Auto) 14.9 % (10.0-50.0) Monocytes (%) (Auto) 6.3 % (0.0-12.0) Eosinophils (%) (Auto) 3.3 % (0.0-7.0) Basophils (%) (Auto) 0.3 % (0.0-2.0) Neutrophils # (Auto) 4.1 10 ^3/uL (1.6-8.6) Lymphocytes # (Auto) 0.8 10 ^3/uL (0.4-5.4) Monocytes # (Auto) 0.3 10 ^3/uL (0-1.3) Eosinophils # (Auto) 0.2 10 ^3/uL (0-0.8) Basophils # (Auto) 0 10 ^3/uL (0-0.2) Nucleated Red Blood Cells 0.0 % Sodium Level 141 mmol/L (136-145) Potassium Level 3.8 mmol/L (3.5-5.1) Chloride Level 109 mmol/L (98-107) Carbon Dioxide Level 24 mmol/L (20-31) Anion Gap 8 (5-15) Blood Urea Nitrogen 6 mg/dL (9-23) Creatinine 0.73 mg/dL (0.550-1.02) Glomerular Filtration Rate Calc 103 mL/min (>90) BUN/Creatinine Ratio 8.2 (10.0-20.0) Serum Glucose 87 mg/dL (74-106) Calcium Level 8.3 mg/dL (8.7-10.4) Total Bilirubin 0.6 mg/dL (0.2-1.0) Aspartate Amino Transferase (AST) 20 U/L (13-40) Alanine Aminotransferase (ALT) 15 U/L (7-40) Alkaline Phosphatase 50 U/L (46-116) Total Protein 6.0 g/dL (5.7-8.2) Albumin 3.5 g/dL (3.2-4.8) Thyroid Stimulating Hormone (TSH) 4.72 uIU/mL (0.55-4.78) Prothrombin Time 10.6 sec (9.3-11.8) Prothrombin Time INR 1.00 (0.9-1.15) Activated Partial Thromboplast Time 26.3 SEC (24.5-34.5) Urine Color Light-yellow (Yellow) Urine Clarity Clear (Clear) Urine pH 5.5 (5.0-9.0) Urine Specific [place] 1.010 (1.001-1.035) Urine Protein Negative (Negative) Urine Ketones Negative (Negative) Urine Blood Negative /uL (Negative) Urine Nitrite Negative (Negative) Urine Bilirubin Negative (Negative) Urine Urobilinogen Normal mg/dL (Negative) Urine Leukocyte Esterase Negative /uL (Negative) Urine RBC 1 /hpf (0 - 4) Urine Microscopic WBC < 1 /HPF (0-5) Urine Squamous Epithelial Cells Few /hpf (<5) Urine Bacteria Many /hpf (None Seen) Urine Glucose Normal mg/dL (Normal) Urine Test Negative (Negative) Other Laboratory Tests 04/14/25 05:23 Brief Hx & Hospital Course: see dictated note Condition at Discharge: Good Final Diagnosis/Problems List lap kassandra Discharge Disposition: Home Discharge Instruct/Medications Diet: Regular Activity: No Restrictions, As Tolerated Follow Up/Referral: schedule appt with dr Aguiar in 1 wk Medications: resume home meds script to pharmacy Scheduled Levothyroxine Sodium (Levothyroxine Sodium), 25 MCG PO DAILY, (Reported) Rimegepant Sulfate (Nurtec), 75 MG PO PRN, (Reported) Semaglutide (Wegovy), 2.4 MG SC QWEEKLY, (Reported) Discharge Statement: "Patient was advised to return to the ER or call 911 if any headaches, dizziness, shortness of breath, chest pain, abdominal pain, bleeding, fevers, or worsening of medical condition. Patient was counseled about treatment plan, medications, possible side effects, patientverbalized understanding. All questions were answered to the best of my ability. This discharge took greater then 30 minutes in planning, reviewing documentation, counseling the patient, and discussing with other team members." ASSESSMENT ASSESSMENT Assessment rainer cannon Date of Service: Apr 14, 2025 Billing Provider: TIM LYNNE MD Common Visit Codes: [id number] DISCH DAY >30min TIM LYNNE MD Apr 14, 2025 10:45
[2025-04-14] MEDS ORDERED: DOCU-94 PO (10:47)
[2025-04-14] MEDS ORDERED: CEPH500T PO (10:47)
[2025-04-14] MEDS ORDERED: HYDR1TAB97 PO (10:47)
--- NOTE | 2025-04-14 13:12 | DVHDS ---
DATE OF DISCHARGE: 04/14/2025 The patient is a 44-year-old lady who was admitted after she underwent laparoscopic cholecystectomy for cholelithiasis and chronic cholecystitis. The patient has previous history of hypothyroidism and migraines. HOSPITAL COURSE: The patient did well postoperatively. The patient has been ambulating and tolerating oral diet. The patient has been passing flatus. Chest x-ray showed poor inspiratory effort. The patient will now be discharged home to be on [place] p.r.n. for pain, Colace p.r.n. for constipation, and cephalexin 500 mg t.i.d. for seven days. She will follow up with Dr. Aguiar in the next one to two weeks. FINAL DIAGNOSES: * Hypothyroidism. * Atelectasis. * History of migraines. * Status post laparoscopic cholecystectomy for cholelithiasis and chronic cholecystitis. * Obesity. Time spent in discharge planning and review of plan with the patient and nursing was 37 minutes. MD ADITHYA Mckeon/ARTURO TID: [id number] RECEIPT: [id number]
== END 2025-04-14 16:34 | disposition home or self-care (01) | DRG 263 ==
LOC: SUR 06:19 → OVERFLOW 10:21 → EAST 10:44
PROVIDERS: ADMIT Internal Medicine; ATTEND Internal Medicine
PROC: 0FT44ZZ Resection of Gallbladder, Percutaneous Endoscopic Approach (ICD-10-PCS; principal; 2025-04-12 07:22)
DX: K80.10 Calculus of gallbladder with chronic cholecystitis without obstruction (principal); R71.0 Precipitous drop in hematocrit; E03.9 Hypothyroidism, unspecified; E66.9 Obesity, unspecified; G43.909 Migraine, unspecified, not intractable, without status migrainosus; J98.11 Atelectasis; K59.00 Constipation, unspecified; Z68.28 Body mass index [BMI] 28.0-28.9, adult
CPT/HCPCS: 36415; 71045; 80053; 81001; 81025; 84443; 85025; 85610; 85730; 86850; 86900; 86901; G0378; J0330; J1100; J2250; J2405; J2470; J2704; J3490

== ENCOUNTER → 2025-04-27 | Outpatient (CLI) | payer MEDICAID ==
[~2025-04-27] MED LIST changes: +CEPH500T PO; +DOCU-94 PO; +HYDR1TAB97 PO
[2025-04-27 11:10] LABS: Nucleated Red Blood Cells % 0.0 %
[2025-04-27 11:12] LABS: Hematocrit 35.9 % (36.0-46.0); Hemoglobin 12.3 g/dL (12.2-16.2); Mean Corpuscular Hemoglobin 31.2 pg (28.0-32.0); Mean Corpuscular Volume 90.8 fL (80.0-100.0)
== END | disposition home or self-care (01) ==
LOC: LAB 10:43
PROVIDERS: ATTEND Nurse Practitioner Family
DX: D69.6 Thrombocytopenia, unspecified (principal)
CPT/HCPCS: 36415; 85025